=== PATIENT | female | born 1960 | race Caucasian/White ===

== ENCOUNTER 2019-11-10 09:22 | Emergency (ER) | payer BC ==
[~2019-11-10] VITALS: Ht 162.6 cm; Wt 70.6 kg
--- NOTE | 2019-11-10 10:01 | NUR ---
Pt requested ice to aid with ring removal; provided.
[2019-11-10 11:07] VITALS: BP 151/99
== END 2019-11-10 11:43 | disposition home or self-care (01) ==
LOC: ER 09:24
DX: S01.511A Laceration without foreign body of lip, initial encounter (principal); S60.212A Contusion of left wrist, initial encounter; S80.11XA Contusion of right lower leg, initial encounter; I10 Essential (primary) hypertension; G89.29 Other chronic pain; Z88.1 Allergy status to other antibiotic agents; Z88.6 Allergy status to analgesic agent; W01.198A Fall on same level from slipping, tripping and stumbling with subsequent striking against other object, initial encounter; Y93.89 Activity, other specified; Y92.89 Other specified places as the place of occurrence of the external cause; Y99.9 Unspecified external cause status
CPT/HCPCS: 29125; 70100; 70450; 73110; 99284